=== PATIENT | male | born 1990 | race Caucasian/White ===

== ENCOUNTER 2017-07-12 14:35 | Emergency (ER) | payer OTHER | END 2017-07-12 16:46 | disposition home or self-care (01) | LOC: ER 14:35 | DX: F15.10 Other stimulant abuse, uncomplicated (principal); F22 Delusional disorders; F17.210 Nicotine dependence, cigarettes, uncomplicated; Z88.8 Allergy status to other drugs, medicaments and biological substances ==

== ENCOUNTER 2019-09-23 12:24 | Emergency (ER) | payer OTHER ==
[~2019-09-23] VITALS: Ht 180.3 cm; Wt 74.8 kg
[~2019-09-23 12:24] MED LIST: GABAPENTIN 100100 MG PO; PAXIL10 MG PO; SEROQUEL 25 MG25 M1 PO; ZOLOFT50 MG PO
[2019-09-23] MEDS ORDERED: AUGMENTIN 875-1 EACH PO (22:34)
[2019-09-23] MEDS ORDERED: ULTRAM 50MG TAB50 MG PO (22:34)
[2019-09-23 22:58] LABS: AMP/METHAMP POSITIVE (Negative); BARBITURATES Negative (Negative); BENZODIAZEPINES Negative (Negative); COCAINE Negative (Negative); METHADONE Negative (Negative); OPIATES Negative (Negative); PCP Negative (Negative)
[2019-09-23 23:03] LABS: HEMATOCRIT 44.7 % (42.0-52.0); HEMOGLOBIN 14.7 gm/dL (14.0-18.0); MCH 30.6 pg (26.0-34.0); MCHC 32.8 g/dL (28.0-37.0); MCV 93.4 fL (80.0-100.0); RBC 4.78 mil/uL (4.50-6.00); RDW 13.4 % (10.5-14.5); WBC 6.9 thou/uL (4.0-11.0)
[2019-09-23 23:11] LABS: CALCIUM 9.4 mg/dL (8.5-10.1); POTASSIUM 3.5 mmol/L (3.5-5.1)
[2019-09-24 08:56] VITALS: BP 114/64
== END 2019-09-24 09:40 | disposition home or self-care (01) ==
LOC: ER 12:24
PROVIDERS: Emergency Medicine
DX: S62.391B Other fracture of second metacarpal bone, left hand, initial encounter for open fracture (principal); F29 Unspecified psychosis not due to a substance or known physiological condition; R45.851 Suicidal ideations; F15.129 Other stimulant abuse with intoxication, unspecified; F17.210 Nicotine dependence, cigarettes, uncomplicated; Y04.0XXA Assault by unarmed brawl or fight, initial encounter; Y92.89 Other specified places as the place of occurrence of the external cause; Y93.89 Activity, other specified; Y99.8 Other external cause status